=== PATIENT | male | born 1950 | race Two or more races ===

== ENCOUNTER 2023-04-21 16:51 | Inpatient (IN) | payer OTHER ==
[~2023-04-21] VITALS: Ht 182.9 cm; Wt 115.5 kg
[2023-04-21 17:46] LABS: BASOPHILS % (AUTO) 0.6 % (0.0-2.0); EOSINOPHILS % (AUTO) 0.4 % (1.0-6.0); HEMATOCRIT 41.2 % (41-53); LYMPHOCYTES % (AUTO) 41.5 % (22.0-44.0); MEAN CORPUSCULAR HEMOGLOBIN 31.9 pg (26.0-34.0); MEAN CORPUSCULAR HGB CONC 34.1 G/dL (31.0-37.0); MEAN CORPUSCULAR VOLUME 94 fL (80-100); MONOCYTES # (AUTO) 0.4 K/uL (0.1-1.0); MONOCYTES % (AUTO) 9.1 % (2.0-9.0); NEUTROPHILS # (AUTO) 2.3 K/uL (1.8-7.7); NEUTROPHILS % (AUTO) 48.4 % (40.0-70.0); PLATELET COUNT (AUTO) 213 K/uL (150-450); RED CELL DISTRIBUTION WIDTH 13.5 % (11.5-14.5)
[2023-04-21 17:49] LABS: ANION GAP 4 mmol/L (8-16); CALCIUM, TOTAL 8.7 mg/dL (8.8-10.5); CARBON DIOXIDE 29 mmol/L (22-29); CHLORIDE 106 mmol/L (98-107); GLOMERULAR FILTR. RATE CALC > 60 mL/min (>60); GLUCOSE,RANDOM 118 mg/dL (70-110); SODIUM SERUM 139 mmol/L (136-145)
[2023-04-21] MEDS ORDERED: AMLO5TAB66 PO (18:22)
[2023-04-21] MEDS ORDERED: LOSA-382 PO (18:22)
[2023-04-21] MEDS ORDERED: TAMS-13 PO (18:22)
[2023-04-21] MEDS ORDERED: ASPI-1146 PO (18:22)
[2023-04-21] MEDS ORDERED: ACETAMINOPHEN 325 MG TABLET PO PRN ×2 (18:45→22:45)
[2023-04-21] MEDS ORDERED: ONDANSETRON HCL 4 MG/2 ML VIAL IVP PRN ×2 (18:45→22:45)
[2023-04-21 22:00] VITALS: BP 161/82
[2023-04-21] MEDS ORDERED: ZOLPIDEM TARTRATE 10 MG TABLET PO PRN (22:45)
[2023-04-21] MEDS ORDERED: HydrALAZINE HCL 20 MG/ML VIAL IVP PRN (22:45)
[2023-04-21] MEDS ORDERED: IPRATROPIUM BROMIDE 0.5 MG/2.5 ML NEB SOLUTION NEB PRN (22:45)
[2023-04-21] MEDS ORDERED: MAGNESIUM HYDROXIDE SUSPENSION 30 ML UDCUP PO PRN (22:45)
[2023-04-21] MEDS ORDERED: MORPHINE SULFATE 2 MG/ML SYRINGE IVP PRN (22:45)
[2023-04-21] MEDS ORDERED: HYDROCODONE/ACETAMINOPHEN 5-325 MG TABLET PO PRN (22:45)
[2023-04-21] MEDS: NITROGLYCERIN 2% (1 GM=INCH) OINTMENT PACKET TP SCH (23:31)
[2023-04-22 05:02] VITALS: BP 127/67
[2023-04-22] MEDS: NITROGLYCERIN 2% (1 GM=INCH) OINTMENT PACKET TP SCH (06:00)
[2023-04-22 07:12] LABS: CHOL/HDL RATIO 4.5 (4.2-7.3)
[2023-04-22 07:40] VITALS: BP 116/59
[2023-04-22] MEDS: TAMSULOSIN HCL 0.4 MG CAPSULE PO SCH ×2 (08:38→19:56)
[2023-04-22] MEDS: AmLODIPine BESYLATE 5 MG TABLET PO SCH (08:39)
[2023-04-22] MEDS: LOSARTAN POTASSIUM 50 MG TABLET PO SCH (08:39)
[2023-04-22] MEDS: PANTOPRAZOLE SODIUM 40 MG/VIAL IVP SCH (08:39)
[2023-04-22] MEDS: DOCUSATE SODIUM 100 MG CAPSULE PO SCH ×2 (08:39→19:56)
[2023-04-22] MEDS: ASPIRIN 81 MG DR TABLET PO SCH (08:39)
[2023-04-22] MEDS ORDERED: NITROGLYCERIN 0.4 MG SUBLINGUAL TABLET #25 SL PRN (08:45)
[2023-04-22] MEDS: ATORVASTATIN CALCIUM 40 MG TABLET PO SCH (09:43)
[2023-04-22] MEDS ORDERED: SESTAMIBI TC99M/UD ISOTOPE 1 EA INJ INJ ONE ×2 (10:30→12:30)
[2023-04-22] MEDS ORDERED: REGADENOSON 0.4 MG/5 ML PF SYRINGE IVP ONE (11:00)
[2023-04-22] MEDS ORDERED: AMINOPHYLLINE 25 MG/ML 10 ML VIAL IVP PRN (11:00)
[2023-04-22 11:02] VITALS: BP 150/86
[2023-04-22 11:08] VITALS: BP 126/72
[2023-04-22 15:39] VITALS: BP 100/55
[2023-04-22 20:11] VITALS: BP 113/66
[2023-04-23 00:11] VITALS: BP 116/44
[2023-04-23 05:08] VITALS: BP 113/69
[2023-04-23 07:46] VITALS: BP 127/54
[2023-04-23 07:51] LABS: ANION GAP 10 mmol/L (8-16); CALCIUM, TOTAL 8.4 mg/dL (8.8-10.5); CARBON DIOXIDE 26 mmol/L (22-29); CHLORIDE 104 mmol/L (98-107); CREATININE 0.75 mg/dL (0.60-1.30); GLOMERULAR FILTR. RATE CALC > 60 mL/min (>60); GLUCOSE,RANDOM 98 mg/dL (70-110); SODIUM SERUM 139 mmol/L (136-145)
[2023-04-23 07:55] LABS: CHOL/HDL RATIO 3.9 (4.2-7.3)
[2023-04-23] MEDS: AmLODIPine BESYLATE 5 MG TABLET PO SCH (08:45)
[2023-04-23] MEDS: ATORVASTATIN CALCIUM 40 MG TABLET PO SCH (08:46)
[2023-04-23] MEDS: DOCUSATE SODIUM 100 MG CAPSULE PO SCH ×2 (08:46→19:55)
[2023-04-23] MEDS: LOSARTAN POTASSIUM 50 MG TABLET PO SCH (08:46)
[2023-04-23] MEDS: PANTOPRAZOLE SODIUM 40 MG/VIAL IVP SCH (08:46)
[2023-04-23] MEDS: ASPIRIN 81 MG DR TABLET PO SCH (08:46)
[2023-04-23] MEDS: TAMSULOSIN HCL 0.4 MG CAPSULE PO SCH ×2 (08:46→19:56)
[2023-04-23 13:49] VITALS: BP 101/59
[2023-04-23 15:11] VITALS: BP 123/64
[2023-04-23] MEDS ORDERED: ATOR40TA28 PO (18:10)
[2023-04-23 19:34] VITALS: BP 123/66
== END 2023-04-23 20:30 | DRG 303 ==
LOC: EMS 16:57 → AHU 19:06 → 5S 20:51
PROVIDERS: ADMIT Hospitalist; ATTEND Hospitalist
DX: I25.110 Atherosclerotic heart disease of native coronary artery with unstable angina pectoris (principal); R07.89 Other chest pain; I10 Essential (primary) hypertension; E78.5 Hyperlipidemia, unspecified; Z95.5 Presence of coronary angioplasty implant and graft; Z79.899 Other long term (current) drug therapy
CPT/HCPCS: 71045; 78452; 80048; 80061; 84484; 85025; 87081; 93005; 99285; A9500; C9113; 36415-L1; 36415-TC

== ENCOUNTER 2024-06-08 12:38 | Emergency (ER) | payer OTHER ==
[~2024-06-08] VITALS: Ht 180.3 cm; Wt 121.4 kg
[~2024-06-08 12:38] MED LIST: AMLO5TAB66 PO; ASPI-1146 PO; ATOR40TA28 PO; LOSA-382 PO; TAMS0.4C94 PO
[2024-06-08 13:03] VITALS: TEMP 97.9
[2024-06-08 13:33] LABS: BASOPHILS % (AUTO) 0.8 % (0.0-2.0); EOSINOPHILS % (AUTO) 2.1 % (1.0-6.0); HEMATOCRIT 40.5 % (41-53); HEMOGLOBIN 13.5 g/dL (13.5-17.5); LYMPHOCYTES # (AUTO) 1.6 K/uL (1.0-4.8); LYMPHOCYTES % (AUTO) 41.4 % (22.0-44.0); MEAN CORPUSCULAR HEMOGLOBIN 31.4 pg (26.0-34.0); MEAN CORPUSCULAR HGB CONC 33.3 G/dL (31.0-37.0); MEAN CORPUSCULAR VOLUME 94 fL (80-100); MONOCYTES # (AUTO) 0.3 K/uL (0.1-1.0); MONOCYTES % (AUTO) 8.6 % (2.0-9.0); NEUTROPHILS # (AUTO) 1.8 K/uL (1.8-7.7); NEUTROPHILS % (AUTO) 47.1 % (40.0-70.0); PLATELET COUNT (AUTO) 201 K/uL (150-450); RED CELL DISTRIBUTION WIDTH 13.3 % (11.5-14.5); WHITE BLOOD COUNT (AUTO) 3.8 K/uL (4.5-11.0)
[2024-06-08 13:35] LABS: APPEARANCE,URINE CLEAR (CLEAR); BILIRUBIN,URINE NEGATIVE (NEGATIVE); COLOR,URINE LIGHT YELLOW (YELLOW); GLUCOSE, URINE (UA) NEGATIVE (NEGATIVE); KETONES,URINE NEGATIVE (NEGATIVE); LEUKOCYTE ESTERASE ,URINE TRACE (NEGATIVE); NITRATE,URINE NEGATIVE (NEGATIVE); OCCULT BLOOD,URINE NEGATIVE (NEGATIVE); PH,URINE 6.5 (5.0-8.0); PROTEIN,URINE NEGATIVE (NEGATIVE); SPECIFIC GRAVITIY, URINE 1.012 (1.003-1.030); UROBILINOGEN,URINE <=1.0 mg/dL (<=1.0)
[2024-06-08 13:41] LABS: ANION GAP 6 mmol/L (8-16); CALCIUM, TOTAL 8.7 mg/dL (8.8-10.5); CARBON DIOXIDE 29 mmol/L (22-29); CHLORIDE 103 mmol/L (98-107); CREATININE 0.91 mg/dL (0.60-1.30); GLOMERULAR FILTR. RATE CALC > 60 mL/min (>60); GLUCOSE,RANDOM 98 mg/dL (70-110); POTASSIUM 4.1 mmol/L (3.5-5.1); SODIUM SERUM 138 mmol/L (136-145); UREA NITROGEN, BLOOD 13 mg/dL (7-18)
[2024-06-08 13:42] LABS: AMPHET/METH SCREEN,URINE NEGATIVE (NEGATIVE); BARBITURATE SCREEN, URINE NEGATIVE (NEGATIVE); BENZODIAZEPINES SCREEN,URINE NEGATIVE (NEGATIVE); CANNABINOID SCREEN,URINE NEGATIVE (NEGATIVE); COCAINE SCREEN,URINE NEGATIVE (NEGATIVE); METHADONE SCREEN, URINE NEGATIVE (NEGATIVE); OPIATE SCREEN,URINE NEGATIVE (NEGATIVE); PHENCYCLIDINE SCREEN,URINE NEGATIVE (NEGATIVE)
[2024-06-08 13:43] LABS: ALCOHOL, URINE DRUG SCREEN NEGATIVE (NEGATIVE); PH,URINE DRUG SCREEN 6.5 (5.0-8.0)
[2024-06-08 13:51] LABS: TROPONIN I-HIGH SENSITIVITY 14 ng/L (<76)
[2024-06-08 14:01] LABS: BACTERIA,URINE None Seen /HPF (None Seen); RBC,URINE None Seen /HPF (0-2); SQUAMOUS EPITHELIAL CELL,UR Few /LPF (None Seen); WBC,URINE 0-2 /HPF (0-5)
[2024-06-08 14:52] VITALS: BP 149/90; PULSE 65; RESP 18
[2024-06-08 15:21] LABS: GLUCOMETER DEV NAME(LOC) ERT.5; GLUCOSE,POINT OF CARE 97 MG/DL (70-110)
== END 2024-06-08 15:21 | disposition home or self-care (01) ==
LOC: EMS 12:38
DX: N41.9 Inflammatory disease of prostate, unspecified (principal); I10 Essential (primary) hypertension; R42 Dizziness and giddiness; E78.00 Pure hypercholesterolemia, unspecified; Z98.890 Other specified postprocedural states
CPT/HCPCS: 80048; 80307; 81001; 82962; 84484; 85025; 93005; 99284